=== PATIENT | male | born 1995 | race Caucasian/White ===

== ENCOUNTER 2022-12-11 13:13 | Emergency (ER) | payer MEDICAID ==
[~2022-12-11] VITALS: Ht 180.3 cm; Wt 111.8 kg
[2022-12-11] MEDS ORDERED: PANTOPRAZOLE 40 MG/10 ML VIAL INJ IV ONE (13:30)
[2022-12-11 14:01] LABS: Urine Bacteria NONE SEEN /hpf (None Seen); Urine Blood Negative /uL (Negative); Urine Specific Gravity 1.024 (1.001-1.035); Urine WBC 1 /hpf (0 - 3)
[2022-12-11 14:04] LABS: Basophils # (auto) 0.1 10 ^3/uL (0-0.2); Basophils % (auto) 0.6 % (0.0-2.0); Eosinophils # (auto) 0.1 10 ^3/uL (0-0.8); Eosinophils % (auto) 0.4 % (0.0-7.0); Hematocrit 51.4 % (41.0-53.0); Hemoglobin 17.5 g/dL (13.5-17.5); Lymphocytes % (auto) 15.5 % (10.0-50.0); Mean Corpuscular Hemoglobin 29.4 pg (28.0-32.0); Mean Corpuscular Volume 86.5 fL (80.0-100.0); Monocytes # (auto) 0.6 10 ^3/uL (0-1.3); Monocytes % (auto) 4.9 % (0.0-12.0); Neutrophils # (auto) 9.9 10 ^3/uL (1.6-8.6); Neutrophils % (auto) 78.6 % (37.0-80.0); Nucleated Red Blood Cells % 0.2 %; Red Blood Cells 5.94 10^6/uL (4.5-5.90); Red Cell Distribution Width 13.1 % (11.8-14.3); White Blood Cell 12.6 10^3/uL (4.4-10.8)
[2022-12-11 14:11] LABS: Potassium 4.1 mmol/L (3.5-5.1)
[2022-12-11] MEDS ORDERED: IOHEXOL 300 MG/ML 100ML BOTTLE IJ ONE (14:14)
[2022-12-11 14:19] LABS: Albumin 4.4 g/dL (3.4-5.0); BUN/Creatinine Ratio 17.2 (10.0-20.0); Bilirubin, Total 0.7 mg/dL (0.2-1.0); Calcium 9.1 mg/dL (8.5-10.1); INR 0.98 (0.9-1.15); Partial Thromboplastin Time 31.2 sec (24.6-33.4); Total Protein 8.2 g/dL (6.4-8.2)
[2022-12-11 16:11] VITALS: BP 139/82
== END 2022-12-11 16:15 | disposition home or self-care (01) ==
LOC: ER 13:13
DX: R10.84 Generalized abdominal pain (principal); D72.829 Elevated white blood cell count, unspecified; F12.10 Cannabis abuse, uncomplicated
CPT/HCPCS: 36415; 74177; 80053; 81001; 83690; 85025; 85610; 85730; 96374; 99285; C9113; Q9967

== ENCOUNTER 2024-09-24 22:03 | Emergency (ER) | payer MEDICAID ==
[~2024-09-24] VITALS: Ht 180.3 cm; Wt 121.8 kg
[~2024-09-24 22:03] MED LIST: BACDST PO
--- NOTE | 2024-09-24 23:55 | DVH ---
XY NECK FOR SOFT TISSUE, HISTORY: Swallowed and entrapped foreign body sensation COMPARISON(S): No prior TECHNICAL DATA: Frontal and lateral views of the soft tissues of the neck were obtained. FINDINGS: The supraglottic and subglottic airways have normal caliber. There is no prevertebral or retropharyng eal soft tissue swelling. No osseous abnormality is present. No radiopaque foreign objects. IMPRESSION: Normal soft tissue neck findings.
--- NOTE | 2024-09-25 01:26 | ED.PDOC ---
Foreign Body HPI Comments This patient is a pleasant but morbidly obese 29-year-old male who arrives to the ED today with complaints of foreign body sensation in his throat for the past week. Patient states he ate something a week ago and subsequent to that time, has had this sensation in his throat. Patient states that today he had a vomiting event and felt like he could feel something in his throat. Patient states he followed up with his primary care provider a few days back and was discharged with unremarkable findings. Patient is able to swallow water and food. Patient denies any respiratory distress. No stridor noted at time of evaluation. Vital signs were stable. Chief Complaint: Foreign Body Time Seen by MD: 23:19 Primary Care Provider: FORD History of Present Illness: Nurses Notes Allergies: Coded Allergies: NO KNOWN ALLERGIES (Unverified , 12/11/22) Home Meds Active Scripts Sulfamethoxazole W/Trimethopri (Bactrim Ds Tablet) 1 Tab Tb, 1 TAB PO BID for 7 Days, #14 TAB 0 Refills Prov:DARINEL RAMOS NP 11/23/23 Information Source: Patient Mode of Arrival: Ambulatory Timing: Days Duration: Since onset Severity: Moderate Ability to handle secretions: Normal Prehospital treatment: None Location: Throat Context: Accidental Foreign Body: Unknown Associated signs and symptoms: None Past Medical History PAST MEDICAL HISTORY: Denies Surgical History: Denies all surgeries Family History Family History: Family hx of Cancer Social History Smoker: Non-Smoker Alcohol: Denies ETOH Use Drugs: Marijuana Lives In: Home Constitutional: denies: chills, diaphoresis, fatigue, fever, malaise, sweats, weakness, others EENTM: reports: others (Dysphagia); denies: blurred vision, double vision, ear bleeding, ear discharge, ear drainage, ear pain, ear ringing, eye pain, eye redness, hearing loss, mouth pain, mouth swelling, nasal discharge, nose bleeding, nose congestion, nose pain, photophobia, tearing, throat pain, throat swelling, voice changes Respiratory: denies: cough, hemoptysis, orthopnea, SOB at rest, shortness of breath, SOB with excertion, stridor, wheezing, others Cardiovascular: denies: chest pain, dizzy spells, diaphoresis, Dyspnea on exertion, edema, irregular heart beat, left arm pain, lightheadedness, palpitations, PND, syncope, others Gastrointestinal: denies: abdomen distended, abdominal pain, blood streaked bowels, constipated, diarrhea, dysphagia, difficulty swallowing, hematemesis, melena, nausea, poor appetite, poor fluid intake, rectal bleeding, rectal pain, vomiting, others Genitourinary: denies: burning, dysuria, flank pain, frequency, hematuria, incontinence, penile discharge, penile sore, pain, testicle pain, testicle swelling, urgency, others Neurological: denies: dizziness, fainting, headache, left sided numbness, left sided weakness, numbness, paresthesia, pre-existing deficit, right sided numbness, right sided weakness, seizure, speech problems, tingling, tremors, weakness, others Musculoskeletal: denies: back pain, gout, joint pain, joint swelling, muscle pain, muscle stiffness, neck pain, others Integumetry: denies: bruises, change in color, change in hair/nails, dryness, laceration, lesions, lumps, rash, wounds, others Allergic/Immunocompromised: denies: Difficulty Healing, Frequent Infections, Hives, Itching, others Hematologic/Lymphatic: denies: anemia, blood clots, easy bleeding, easy bruising, swollen glands, others Endocrine: denies: excessive hunger, excessive sweating, excessive thirst, excessive urination, flushing, intolerance to cold, intolerance to heat, unexplained weight gain, unexplained weight loss, others Psychiatric: denies: anxiety, bipolar disorder, depression, hopeless, panic d isorder, schizophrenia, sleepless, suicidal, others Physical Exam General Appearance: Mild Distress (Moderate distress due to swallowing concerns.), Normal HEENT: Normal ENT Inspection, Pharynx Normal, TMs Normal, Other (Unremarkable evaluation of oropharyngeal region. Airway looks patent. No signs of masses. No foreign bodies noted.) Neck: Full Range of Motion, Non-Tender, Normal, Normal Inspection, Other (Unremarkable evaluation of neck. No masses appreciated on palpation.) Respiratory: Chest Non-Tender, Lungs Clear, No Accessory Muscle Use, No Respiratory Distress, Normal Breath Sounds Cardiovascular: No Edema, No JVD, No Murmur, No Gallop, Normal Peripheral Pulses, Regular Rate/Rhythm Breast Exam: Deferred Gastrointestinal: No Organomegaly, Non Tender, No Pulsatile Mass, Normal Bowel Sounds, Soft Genitalia: Deferred Pelvic: Deferred Rectal: Deferred Extremities: No calf tenderness, Normal capillary refill, Normal inspection, Normal range of motion, Non-tender, No pedal edema Neurologic: Alert, No Motor Deficits, Normal Affect, Normal Mood, No Sensory Deficits Cerebellar Function: Normal Reflexes: Normal Skin: Dry, Normal Color, Warm Lymphatic: No Adenopathy Was a procedure done? Was a procedure done?: No FB Differential Dx Differential Diagnosis: Airway Obstruction, Esophageal Obstruction, Foreign Body X-Ray, Labs, Meds, VS Vital Signs Date Time Temp Pulse Resp B/P (MAP) Pulse Ox O2 Delivery O2 Flow Rate FiO2 09/24/24 22:45 96.8 96 18 123/74 (90) 97 X-Ray, Labs, Meds, VS Comment All studies performed the ED were evaluated by me personally. Imaging studies were unremarkable for any entrapped esophageal foreign body. Advised patient that seems to be that he is experiencing a foreign body sensation. Advise utilizing Tylenol and or Motrin for the next few days. If symptoms continue, patient will have to follow up again with his primary care provider for evaluation and possible ENT referral. Time of 1ST Reevaluation: Reevaluation 1ST: Improved Patient Education/Counseling: Diagnosis, Treatment Family Education/Counseling: Diagnosis, Treatment Departure 1 Departure Time of Disposition: : Impression: Primary Impression: Dysphagia Disposition: HOME / SELF CARE / HOMELESS Condition: Stable Additional Instructions: Advised patient utilize Tylenol and or Motrin as needed for symptomatic relief. If symptoms continue, patient will need to follow up with primary care provider for possible ENT referral and evaluation. e-Prescriptions Ibuprofen Micronized (Ibuprofen) 800 Mg Tab 800 MG PO Q8HP PRN, #20 TAB Prov: CARMELLA CARLSON PAC 09/25/24 Discharged With: Self, Friend Critical Care Note Critical Care Time?: No Stability Stability form required: No Heart Score Heart Score: Heart Score Response (Comments) Value History N/A 0 EKG N/A 0 Age N/A 0 Risk Factors N/A 0 Troponin N/A 0 Total 0 CARMELLA CARLSON PAC Sep 25, 2024 01:26
[2024-09-25] MEDS ORDERED: IBUP-1455 PO (01:30)
[2024-09-25] MEDS: GLUCAGON EMERG KIT 1mg/1ml IM ONE (03:16)
[2024-09-25 03:22] VITALS: BP 118/95; PULSE 88; RESP 18; TEMP 98.4; O2SAT 96
== END 2024-09-25 03:23 | disposition home or self-care (01) ==
LOC: ER 22:03
DX: R13.10 Dysphagia, unspecified (principal)
CPT/HCPCS: 70360; 96372; 99283; J1610

== ENCOUNTER → 2024-10-25 | Outpatient (CLI) | payer MEDICAID ==
[~2024-10-25] MED LIST changes: +DEXT60TA4 PO; +GABA-1250 PO; +HYDR50TA69 PO; +IBUP-1455 PO
== END | disposition home or self-care (01) ==
LOC: LAB 10:20
PROVIDERS: ATTEND Dermatology
DX: L73.2 Hidradenitis suppurativa (principal)
CPT/HCPCS: 36415; 84460

== ENCOUNTER 2024-10-27 09:48 | Day surgery (SDC) | payer MEDICAID ==
[2024-10-25 10:49] LABS: Urine Bacteria None Seen /hpf (None Seen)
[2024-10-25 11:15] LABS: Partial Thromboplastin Time 29.5 SEC (24.5-34.5); Prothrombin Time 10.6 sec (9.3-11.8)
[2024-10-25 11:19] LABS: Urine Blood Negative /uL (Negative); Urine Clarity Clear (Clear); Urine Color Light-Yellow (Yellow); Urine Protein, UAD Negative (Negative); Urine Specific Gravity 1.021 (1.001-1.035); Urine Squamous Epithelial Cell FEW /hpf (<5); Urine Urobilinogen Normal (Negative); Urine WBC 1 /HPF (0-3)
[2024-10-25 11:21] LABS: Basophils # (auto) 0.1 10 ^3/uL (0-0.2); Basophils % (auto) 0.6 % (0.0-2.0); Eosinophils # (auto) 0.2 10 ^3/uL (0-0.8); Eosinophils % (auto) 1.2 % (0.0-7.0); Hematocrit 50.9 % (41.0-53.0); Hemoglobin 17.5 g/dL (13.5-17.5); Lymphocytes # (auto) 3.7 10 ^3/uL (0.4-5.4); Lymphocytes % (auto) 29.7 % (10.0-50.0); Mean Corpuscular Hemoglobin 29.9 pg (28.0-32.0); Mean Corpuscular Hgb Conc. 34.4 g/dL (32.0-36.0); Mean Corpuscular Volume 86.7 fL (80.0-100.0); Monocytes # (auto) 0.8 10 ^3/uL (0-1.3); Monocytes % (auto) 6.1 % (0.0-12.0); Neutrophils # (auto) 7.8 10 ^3/uL (1.6-8.6); Neutrophils % (auto) 62.4 % (37.0-80.0); Nucleated Red Blood Cells % 0.3 %; Platelet Count (auto) 235 10^3/uL (140-450); Red Blood Cells 5.86 10^6/uL (4.5-5.90); Red Cell Distribution Width 13.1 % (11.8-14.3); White Blood Cell 12.4 10^3/uL (4.4-10.8)
[2024-10-25 11:40] LABS: Anion Gap 10 (5-15); Aspartate Aminotransferase 31 U/L (13-40); BUN/Creatinine Ratio 12.5 (10.0-20.0); Blood Urea Nitrogen 13 mg/dL (9-23); Carbon Dioxide 24 mmol/L (20-31); Chloride 104 mmol/L (98-107); Glucose 94 mg/dL (74-106); Sodium 138 mmol/L (136-145)
[2024-10-25 11:41] LABS: Bilirubin, Total 0.9 mg/dL (0.2-1.0)
[2024-10-25 11:43] LABS: Alanine Aminotransferase 100 U/L (7-40); Albumin 5.5 g/dL (3.2-4.8); Alkaline Phosphatase 116 U/L (46-116); Calcium 10.6 mg/dL (8.7-10.4); Total Protein 8.4 g/dL (5.7-8.2)
[~2024-10-27] VITALS: Ht 180.3 cm; Wt 120.2 kg
[~2024-10-27 09:48] MED LIST changes: -BACDST PO
[2024-10-27] MEDS ORDERED: PROPOFOL 10 MG/ML 20 ML IV ONE (10:58)
[2024-10-27] MEDS ORDERED: ONDANSETRON HCL 4 MG/2 ML VIAL ONE (10:58)
[2024-10-27] MEDS ORDERED: MIDAZOLAM HCL 2MG/2ML 2ml VIAL (1mg/ml) ONE (10:58)
[2024-10-27 11:10] VITALS: PULSE 101; RESP 18; TEMP 98; O2SAT 92
--- NOTE | 2024-10-27 11:10 | DVHHP2 ---
GI H&P Pre-Op Assessment Date: 10/27/24 Chief complaint: Globus sensation, nausea, vomiting, dysphagia HPI: per clinic note Past medical history: per clinic note Past surgical history: per clinic note Family history: per clinic note Physical exam: General: NAD, AAOX3 HEENT: PERRL, no scleral icterus, normal hearing, gums without lesions or bleeding, oropharynx clear without erythema or exudate. Neck: Supple without enlargement of the thyroid, or lymphadenopathy. Chest: Normal size and shape, no tenderness, lung cottrell clear to auscultation and percussion, nonlabored breathing. Heart: RRR, no murmur Abdomen: non-distended, no tenderness to palpation, +BS, no hepatosplenomegaly Extremities: no edema Neurological: CN II-XII intact, sensation intact in all extremities, 5+ strength in all extremities Skin: No rashes, No jaundice Assessment: - Globus sensation, nausea, vomiting, dysphagia Plan: - EGD - Risks (bleeding, infection, perforation, reaction to sedation medications and cardiopulmonary arrest) and benefit of the procedure were explained to patient. Patient agrees to undergo the procedure. MARITZA DAY MD Oct 27, 2024 11:10
--- NOTE | 2024-10-27 11:12 | DVHDS2 ---
Physician Discharge Progress N Final Diagnosis: Duodenitis, gastritis, hiatal hernia Operations or Procedures: Operations or Procedures EGD with cold biopsy Condition on Discharge: Good Disposition: Home Discharge Instructions: Diet: Regular Activity: No Restrictions, As Tolerated Medications: Resume previous home medications Follow Up Care: Discharge Statement: "Patient was advised to return to the ER or call 911 if any headaches, dizziness, shortness of breath, chest pain, abdominal pain, bleeding, fevers, or worsening of medical condition. Patient was counseled about treatment plan, medications, possible side effects, patientverbalized understanding. All questions were answered to the best of my ability. This discharge took greater then 30 minutes in planning, reviewing documentation, counseling the patient, and discussing with other team members." MARITZA DAY MD Oct 27, 2024 11:12
--- NOTE | 2024-10-27 11:12 | DVHOP2 ---
Operative Report DATE OF OPERATION: 10/27/24 PROCEDURE: Upper Endoscopy. PREOPERATIVE INDICATION: The patient is a 29 -year-old male undergoing endoscopy for globus sensation, nausea, vomiting and dysphagia. POSTOPERATIVE DIAGNOSES: 1. Duodenitis in the duodenal bulb. 2. Slight gastritis 3. Hiatal hernia from 36-40 cm PROCEDURE PERFORMED BY: Clint Velazquez SCOPE: Olympus videoendoscope. ASA CLASS: 2 PREOPERATIVE MEDICATIONS: MAC with Blayne BORGES PROCEDURE IN DETAIL: After obtaining an informed consent, the patient was placed on left lateral decubitus position. The patient was then sedated with the above medications. A bite block was placed between his teeth. The endoscope was then passed through the oropharynx, into the esophagus, and through the stomach and pylorus up to the second and third part of the duodenum. There was duodenitis in the duodenal bulb. Duodenal biopsies were obtained using cold forceps. There was slight gastritis. Gastric biopsies were obtained using cold forceps. There was hiatal hernia from 36-40 cm. The GE junction was normal in appearance at 36 cm. The esophagus was normal in appearance. The endoscope was then withdrawn. The patient tolerated the procedure well without difficulty. COMPLICATIONS : None SPECIMENS: Gastric biopsies, duodenal biopsy DISPOSITION: D/C to home PLAN: 1. Await for biopsy result 2. Will place pt on Protonix 40 mg bid CLINT VELAZQUEZ MD Oct 27, 2024 11:12
[2024-10-27 11:40] VITALS: BP 109/66; PULSE 72; RESP 15; O2SAT 94
== END 2024-10-27 11:50 | disposition home or self-care (01) ==
LOC: GI 09:48
PROVIDERS: ATTEND Internal Medicine Gastroenterology
DX: R11.2 Nausea with vomiting, unspecified (principal); R13.10 Dysphagia, unspecified; K44.9 Diaphragmatic hernia without obstruction or gangrene; K29.80 Duodenitis without bleeding; K29.50 Unspecified chronic gastritis without bleeding; Z98.890 Other specified postprocedural states
CPT/HCPCS: 36415; 43239; 80053; 81001; 85025; 85610; 85730; 88305; 88312; 88342; J2250; J2405; J2704; J7030

== ENCOUNTER → 2024-11-28 | Outpatient (CLI) | payer MEDICAID ==
[2024-11-28 10:42] LABS: Basophils # (auto) 0.1 10 ^3/uL (0-0.2); Eosinophils # (auto) 0.2 10 ^3/uL (0-0.8); White Blood Cell 11.8 10^3/uL (4.4-10.8)
[2024-11-28 10:46] LABS: Eosinophils % (auto) 1.5 % (0.0-7.0); Hematocrit 50.1 % (41.0-53.0); Lymphocytes # (auto) 4.1 10 ^3/uL (0.4-5.4); Lymphocytes % (auto) 34.6 % (10.0-50.0); Mean Corpuscular Hemoglobin 30.8 pg (28.0-32.0); Mean Corpuscular Volume 85.5 fL (80.0-100.0); Monocytes # (auto) 0.8 10 ^3/uL (0-1.3); Monocytes % (auto) 6.5 % (0.0-12.0); Neutrophils # (auto) 6.7 10 ^3/uL (1.6-8.6); Neutrophils % (auto) 56.4 % (37.0-80.0); Platelet Count (auto) 259 10^3/uL (140-450); Red Blood Cells 5.86 10^6/uL (4.5-5.90); Red Cell Distribution Width 12.8 % (11.8-14.3)
[2024-11-28 11:08] LABS: Chloride 105 mmol/L (98-107); Potassium 3.8 mmol/L (3.5-5.1); Sodium 139 mmol/L (136-145)
[2024-11-28 11:09] LABS: Anion Gap 10 (5-15); Carbon Dioxide 24 mmol/L (20-31)
[2024-11-28 11:10] LABS: Calcium 10.5 mg/dL (8.7-10.4)
[2024-11-28 11:14] LABS: BUN/Creatinine Ratio 19.8 (10.0-20.0); Blood Urea Nitrogen 19 mg/dL (9-23); Glucose 93 mg/dL (74-106)
== END | disposition home or self-care (01) ==
LOC: LAB 10:05
DX: Z01.812 Encounter for preprocedural laboratory examination (principal)
CPT/HCPCS: 36415; 80048; 85025

== ENCOUNTER 2024-12-12 11:47 | Emergency (ER) | payer MEDICAID ==
[~2024-12-12] VITALS: Ht 180.3 cm; Wt 116.1 kg
--- NOTE | 2024-12-12 12:37 | ED.PDOC ---
Eye-HPI HPI Comments 29 y.o male presents to the ED for an evaluation of pharyngeal bleeding that started 4 hours ago. Patient states he underwent tonsillectomy on 12/08/24 at [facility], notes improvement of postoperative pain but new onset bleeding, spitting up moderate amounts of dark blood. Patient has been taking Ibuprofen for pain. Patient denies any fever, chills, nausea or vomiting. Patient denies any other past medical history. Chief Complaint: Wound Check Time Seen by MD: 12:23 Primary Care Provider: FORD Reviewed Notes: Nurses Notes, Medications, Allergies Allergies: Coded Allergies: NO KNOWN ALLERGIES (Unverified , 12/11/22) Home Meds Active Scripts Ibuprofen Micronized (Ibuprofen) 800 Mg Tab, 800 MG PO Q8HP PRN, #20 TAB Prov:CARMELLA CARLSON Reggie PAC 09/25/24 Reported Medications Dextromethorphan-Guaifenesin (Mucinex Dm Maximum Streng) 1 Tab Tab, 45 MG PO, TAB 10/25/24 Gabapentin (Gabapentin) 300 Mg Cap, 300 MG PO, CAP 10/25/24 Hydroxyzine Hcl (Hydroxyzine Hcl) 50 Mg Tab, 50 MG PO QPM, TAB 10/25/24 Information Source: Patient Mode of Arrival: Ambulatory Timing: Hours Duration: Since onset Quality: Pain Associated signs and symptoms: Other Past Medical History PAST MEDICAL HISTORY: Denies Surgical History: Tonsillectomy Surgical History (Other): right ankle replacement Family History Family History: Family hx of Cancer Social History Smoker: Non-Smoker Alcohol: Denies ETOH Use Drugs: Marijuana Lives In: Home Constitutional: denies: chills, diaphoresis, fatigue, fever, malaise, sweats, weakness, others EENTM: reports: throat pain, others (throat beeding ); denies: blurred vision, double vision, ear bleeding, ear discharge, ear drainage, ear pain, ear ringing, eye pain, eye redness, hearing loss, mouth pain, mouth swelling, nasal discharge, nose bleeding, nose congestion, nose pain, photophobia, tearing, throat swelling, voice changes Respiratory: denies: cough, hemoptysis, orthopnea, SOB at rest, shortness of breath, SOB with excertion, stridor, wheezing, others Cardiovascular: denies: chest pain, dizzy spells, diaphoresis, Dyspnea on exertion, edema, irregular heart beat, left arm pain, lightheadedness, palpitations, PND, syncope, others Gastrointestinal: denies: abdomen distended, abdominal pain, blood streaked bowels, constipated, diarrhea, dysphagia, difficulty swallowing, hematemesis, melena, nausea, poor appetite, poor fluid intake, rectal bleeding, rectal pain, vomiting, others Genitourinary: denies: burning, dysuria, flank pain, frequency, hematuria, incontinence, penile discharge, penile sore, pain, testicle pain, testicle swelling, urgency, others Neurological: denies: dizziness, fainting, headache, left sided numbness, left sided weakness, numbness, paresthesia, pre-existing deficit, right sided numbness, right sided weakness, seizure, speech problems, tingling, tremors, weakness, others Musculoskeletal: denies: back pain, gout, joint pain, joint swelling, muscle pain, muscle stiffness, neck pain, others Integumetry: denies: bruises, change in color, change in hair/nails, dryness, laceration, lesions, lumps, rash, wounds, others Allergic/Immunocompromised: denies: Difficulty Healing, Frequent Infections, Hives, Itching, others Hematologic/Lymphatic: denies: anemia, blood clots, easy bleeding, easy bruising, swollen glands, others Endocrine: denies: excessive hunger, excessive sweating, excessive thirst, excessive urination, flushing, intolerance to cold, intolerance to heat, unex plained weight gain, unexplained weight loss, others Psychiatric: denies: anxiety, bipolar disorder, depression, hopeless, panic disorder, schizophrenia, sleepless, suicidal, others All Other Systems: Reviewed and Negative Physical Exam General Appearance: Mild Distress HEENT: Pharyngeal Erythema (Pharyngeal erythema and moderate edema, blood clots overlying surgical wounds with mild dark red blood pooling in the posterior pharynx), Other (Pupils and face symmetric. Moist mucous membranes.) Neck: Full Range of Motion, Normal Inspection Respiratory: Lungs Clear, No Accessory Muscle Use, No Respiratory Distress, Normal Breath Sounds Cardiovascular: No Edema, No JVD, Regular Rate/Rhythm Breast Exam: Deferred Gastrointestinal: Non Tender, Soft Genitalia: Deferred Pelvic: Deferred Rectal: Deferred Extremities: Normal inspection, Normal range of motion, Non-tender, No pedal edema Neurologic: Alert (Oriented x4), Normal Affect, Normal Mood, Other (Ambulatory without difficulty) Cerebellar Function: NOT DONE Reflexes: NOT DONE Skin: Dry, Normal Color, Warm Lymphatic: NOT DONE Was a procedure done? Was a procedure done?: No EENT DIFF Eye: N/A Other Differential Diagnosis Postoperative hemorrhage, coagulopathy, wound infection, anemia, among others X-Ray, Labs, Meds, VS Vital Signs Date Time Temp Pulse Resp B/P (MAP) Pulse Ox O2 Delivery O2 Flow Rate FiO2 12/12/24 14:51 74 16 108/81 (90) 98 12/12/24 14:49 74 16 108/81 12/12/24 14:17 97 Room Air* 0 21 12/12/24 14:17 18 97 Room Air* 0 21 12/12/24 13:30 16 97 Room Air* 0 21 12/12/24 13:30 97 Room Air* 0 21 12/12/24 13:22 79 16 139/87 12/12/24 12:58 69 16 139/87 (104) 100 12/12/24 12:58 69 16 100 Room Air* 0 21 12/12/24 11:58 98.3 74 20 158/81 (106) 94 98.3 Lab Test 12/12/24 12:57 Range/Units White Blood Count 15.0 H 4.4-10.8 10^3/uL Red Blood Count 6.00 H 4.5-5.90 10^6/uL Hemoglobin 17.9 H 13.5-17.5 g/dL Hematocrit 51.6 41.0-53.0 % Mean Corpuscular Volume 85.9 80.0-100.0 fL Mean Corpuscular Hemoglobin 29.8 28.0-32.0 pg Mean Corpuscular Hemoglobin Concent 34.7 32.0-36.0 g/dL Red Cell Distribution Width 12.6 11.8-14.3 % Platelet Count 296 140-450 10^3/uL Mean Platelet Volume 7.6 6.9-10.8 fL Neutrophils (%) (Auto) 64.7 37.0-80.0 % Lymphocytes (%) (Auto) 27.4 10.0-50.0 % Monocytes (%) (Auto) 6.9 0.0-12.0 % Eosinophils (%) (Auto) 0.4 0.0-7.0 % Basophils (%) (Auto) 0.6 0.0-2.0 % Neutrophils # (Auto) 9.7 H 1.6-8.6 10 ^3/uL Lymphocytes # (Auto) 4.1 0.4-5.4 10 ^3/uL Monocytes # (Auto) 1.0 0-1.3 10 ^3/uL Eosinophils # (Auto) 0.1 0-0.8 10 ^3/uL Basophils # (Auto) 0.1 0-0.2 10 ^3/uL Nucleated Red Blood Cells 0.1 % Prothrombin Time 11.4 9.3-11.8 sec Prothrombin Time INR 1.08 0.9-1.15 Activated Partial Thromboplast Time 29.5 24.5-34.5 SEC Sodium Level 139 136-145 mmol/L Potassium Level 3.9 3.5-5.1 mmol/L Chloride Level 105 98-107 mmol/L Carbon Dioxide Level 23 20-31 mmol/L Anion Gap 11 5-15 Blood Urea Nitrogen 18 9-23 mg/dL Creatinine 1.03 0.700-1.30 mg/dL Glomerular Filtration Rate Calc 101 >90 mL/min BUN/Creatinine Ratio 17.5 10.0-20.0 Serum Glucose 77 74-106 mg/dL Calcium Level 10.2 8.7-10.4 mg/dL Current Medications Medications (Trade) Dose Ordered Sig/Edvin Route Start Time Stop Time Status Last Admin Epinephrine HCl (Racenephrine) 0.5 ml ONCE ONCE NEB 12/12/24 12:45 12/12/24 12:46 DC 12/12/24 13:28 Tranexamic Acid (Tranexamic Acid) 500 mg NOW ONCE NEB 12/12/24 14:10 12/12/24 14:11 DC 12/12/24 14:16 Morphine Sulfate 4 mg ONCE ONCE IV 12/12/24 13:30 12/12/24 13:31 DC 12/12/24 13:22 Ondansetron HCl (Zofran) 4 mg ONCE ONCE IV 12/12/24 13:30 12/12/24 13:31 DC 12/12/24 13:21 Tranexamic Acid 1000 mg/Sodium Chloride 110 ml @ 300 mls/hr ONCE ONCE IV 12/12/24 14:30 12/12/24 14:51 DC 12/12/24 16:05 Dexamethasone Sodium Phosphate (Decadron Injection) 4 mg ONCE ONCE IV 12/12/24 16:00 12/12/24 16:01 DC 12/12/24 16:11 X-Ray, Labs, Meds, VS Comment 29-year-old male with no significant past medical history status post tonsillectomy on 12/08/2024 complaining of postoperative bleeding Vitals unremarkable Exam remarkable for pharyngeal erythema, edema, blood clots overlying surgical wounds and minimal dark red blood pooling in the posterior pharynx area Rhythm strip independently interpreted by me: Sinus rhythm, rate 79, no ectopy. CBC, basic metabolic panel and coagulation panel unremarkable for any abnormality of acute significance Patient treated with the following in the ED: Racemic epi 0.5 mL nebulized, TXA 500 mg nebulized, TXA 1 g IV, morphine 4 mg IV x 2, Zofran 4 mg IV x 2, Decadron 10 mg IV Plan was to transfer the patient to [facility] for surgical re-evaluation. As of 1514, they were at capacity and could not accept the transfer. At 1600, patient stated the bleeding had slowed down, and he did not want to wait any longer for transfer. He elected to sign out against medical advice. He was advised of the risks including persistent or worsening symptoms, severe hemorrhage or . He expressed understanding and insisted on leaving against medical advice. He was alert, oriented x4 and capable of making informed decisions at the time he signed out. Time of 1ST Reevaluation: 13:00 Reevaluation 1ST: Unchanged Time of 2ND Reevaluation: 16:00 Reevaluation 2ND: Improved Patient Education/Counseling: Diagnosis, Treatment, Prognosis Family Education/Counseling: No Family Present Departure 1 Departure Time of Disposition: 16:00 Impression: Primary Impression: Post-tonsillectomy hemorrhage Disposition: 07 LEFT AGAINST MEDICAL ADVICE Condition: Fair Additional Instructions: Follow-up at [facility] as soon as possible for surgical re-evaluation of your bleeding Discharged With: Relative (Mother) Critical Care Note Critical Care Time?: Yes (35 min-critical care time only) Critical care comment: Critical care time including multiple bedside re-evaluations, review of lab and imaging studies, and discussion of the case with the potential accepting provider. Patient is high risk for hemodynamic decompensation. Stability Stability form required: No I personally scribed for PEYMAN VALLADARES MD ([email or web address]) on 12/12/24 at 12:37. Electronically submitted by Nikki Wang ([facility]). PEYMAN VALLADARES MD December 12, 2024 12:37
[2024-12-12] MEDS ORDERED: TRANEXAMIC ACID 1,000 MG in SODIUM CHL 0.9% 100 ML IV ONE (12:45)
[2024-12-12 12:58] VITALS: PULSE 69; RESP 16; O2SAT 100
[2024-12-12 13:11] LABS: Basophils # (auto) 0.1 10 ^3/uL (0-0.2); Eosinophils # (auto) 0.1 10 ^3/uL (0-0.8); Hemoglobin 17.9 g/dL (13.5-17.5); Lymphocytes # (auto) 4.1 10 ^3/uL (0.4-5.4)
[2024-12-12 13:15] LABS: Basophils % (auto) 0.6 % (0.0-2.0); Eosinophils % (auto) 0.4 % (0.0-7.0); Hematocrit 51.6 % (41.0-53.0); Lymphocytes % (auto) 27.4 % (10.0-50.0); Mean Corpuscular Hemoglobin 29.8 pg (28.0-32.0); Mean Corpuscular Hgb Conc. 34.7 g/dL (32.0-36.0); Mean Corpuscular Volume 85.9 fL (80.0-100.0); Monocytes % (auto) 6.9 % (0.0-12.0); Neutrophils # (auto) 9.7 10 ^3/uL (1.6-8.6); Neutrophils % (auto) 64.7 % (37.0-80.0); Nucleated Red Blood Cells % 0.1 %; Platelet Count (auto) 296 10^3/uL (140-450); Red Cell Distribution Width 12.6 % (11.8-14.3)
[2024-12-12 13:17] LABS: Chloride 105 mmol/L (98-107); Potassium 3.9 mmol/L (3.5-5.1); Sodium 139 mmol/L (136-145)
[2024-12-12 13:18] LABS: Anion Gap 11 (5-15); Calcium 10.2 mg/dL (8.7-10.4); Carbon Dioxide 23 mmol/L (20-31)
[2024-12-12] MEDS: ONDANSETRON HCL 4 MG/2 ML VIAL IV ONE ×2 (13:21→16:41)
[2024-12-12] MEDS: MORPHINE SULFATE 4 MG/ML SYR/VIAL IV ONE ×2 (13:22→16:42)
[2024-12-12 13:23] LABS: BUN/Creatinine Ratio 17.5 (10.0-20.0); Blood Urea Nitrogen 18 mg/dL (9-23); Glucose 77 mg/dL (74-106)
[2024-12-12] MEDS: EPINEPHrine HCL 0.5 ML NEB NEB ONE (13:28)
[2024-12-12 13:30] LABS: INR 1.08 (0.9-1.15); Partial Thromboplastin Time 29.5 SEC (24.5-34.5); Prothrombin Time 11.4 sec (9.3-11.8)
[2024-12-12] MEDS: TRANEXAMIC ACID 1,000 mg/10ml INJ VIAL NEB ONE (14:16)
[2024-12-12] MEDS: TRANEXAMIC ACID 1,000 MG in SODIUM CHL 0.9% 100 ML IV ONE (16:05)
[2024-12-12] MEDS: DexAMETHasone SOD PHOS 4 MG/1ML SDV INJ IV ONE (16:11)
[2024-12-12 16:40] VITALS: TEMP 98.3; O2SAT 95
[2024-12-12 16:42] VITALS: BP 137/79; PULSE 72; RESP 16
[2024-12-12] MEDS: CLINDAMYCIN 900MG IV 50 ML IV ONE (16:42)
== END 2024-12-12 16:44 | disposition left against medical advice (07) ==
LOC: ER 11:47
DX: J95.830 Postprocedural hemorrhage of a respiratory system organ or structure following a respiratory system procedure (principal); G89.18 Other acute postprocedural pain; R06.02 Shortness of breath; Z90.89 Acquired absence of other organs; Z96.661 Presence of right artificial ankle joint
CPT/HCPCS: 36415; 80048; 85025; 85610; 85730; 94640; 96365; 96375; 96376; 99284; J2270; J2405; J1100; J3490